=== PATIENT | female | born 1955 | race Caucasian/White ===

== ENCOUNTER 2023-02-04 09:26 | Emergency (ER) | payer OTHER, SELFPAY ==
--- NOTE | 2023-02-04 09:43 | MHC.EDTECH ---
PER DR THORPE TIME OF IS 09:40AM
--- NOTE | 2023-02-04 09:48 | PC.NURSE ---
family notified of pt passing.
--- NOTE | 2023-02-04 09:55 | ED.CPR ---
HPI - CPR General Chief Complaint: Cardiac Arrest/CPR Stated Complaint: CARDIAC ARREST PER EMS Time Seen by Provider: 02/04/23 09:28 Source: EMS Mode of arrival: EMS Limitations: other (intubated unresponsive) History of Present Illness HPI narrative: cardiac arrest, down for 40 minutes. IN the bathroom slumped down, EMS called patient found in cardiac arrest, paramedics started ACLS, intubated, IO placed MD complaint: collapsed during rest (on the toilet) Onset (ago): minute(s) Timing confirmed by: spouse and family member Place: home Initial findings in the field: unresponsive Review of Systems Review of Systems: Yes Unobtainable due to mental status PMFSH Social History Advance Directives: No Advance Directives Information Provided: No Physical Exam Vital Signs: Vital Signs: BMI result Body Mass Index 27.7 Const: Other: intubated CpR in progress HEENT: Other: fixed and dilated Chest: Other: no heart sounds Resp: Other: bilateral BS with cpr and bagging Neuro: Other: no movement Course Reevaluation(s) Reevaluation #1: bedside US showed slight heart movement, epi and levophed started. At 9:40 no heart movement code called Time: 10:48 Reevaluation #2: spoke with ME, case declined Time: 10:48 Reevaluation #3: I spent 40 minutes of critical care, with interventions, assessments, speaking to patient, consultants, and family. Time: 10:49 Medical Decision Making Differential Diagnosis Differential Diagnoses: The differential diagnosis associated with the presentation includes (cardiac arrest, STEMI, PE were all considered) Admission/Observation Consideration of admission/observation: Escalation of care including admission/observation considered (upon arrival patient was considered for admission) Lab Data Labs: Lab Results 02/04/23 Range/Units 09:29 POC Glucose 141 H (60-115) mg/dL Independent Interpretation I performed an independent interpretation of an: Rhythm Strip (PEA rate of 80) and Ultrasound (bedside US showed initial heart movement, but eventually there was no cardiac movement) Independent Historian Clinical information obtained from an independent historian. History obtained from or confirmed by: Spouse, EMS and Other (family) Chronic Conditions Patient?s care impacted by: Hypertension and Other (hyperlipidemia) Discharge Plan Discharge Clinical Impression: Cardiac arrest Patient Disposition: on Arrival
--- NOTE | 2023-02-04 10:01 | PC.NURSE ---
Called [facility], spoke with Mamie. Declined to take pt.
[2023-02-04 10:03] LABS: Glucose, Whole Blood 141 mg/dL (60-115)
[2023-02-04 10:17] VITALS: BMI 27.7
--- NOTE | 2023-02-04 10:29 | MHC.EDTECH ---
@ 10:09AM [employer] OFFICE CALLED [facility] ANSWERS, TAKES PT INFO COLLECTED BY ER REGISTRATION AND SPEAKS WITH DR THORPE ME OFFICE DECLINES CASE, @10:27AM ANDREY SUAZO CALLS TO CHECK STATUS AND IF ME ACCEPTED OR DECLINED CASE, TOLD IT WAS DECLINED
--- NOTE | 2023-02-04 12:53 | MHC.EDTECH ---
FAMILY LEAVES AT THIS TIME GIVES [facility] HOME IN [place]
== END 2023-02-04 13:15 | disposition expired ==
PROVIDERS: Emergency Provider Emergency Medicine
DX: I46.9 Cardiac arrest, cause unspecified (principal); I10 Essential (primary) hypertension; E78.5 Hyperlipidemia, unspecified
CPT/HCPCS: 82947; 96374; 99282; 99285; J0171